=== PATIENT | female | born 1995 | race Caucasian/White ===

== ENCOUNTER 2020-09-03 10:39 | Emergency (ER) | payer OTHER ==
[~2020-09-03] VITALS: Ht 177.8 cm; Wt 89.8 kg
[2020-09-03 10:50] VITALS: Ht 177.8 cm; Wt 89.8 kg
[2020-09-03 12:57] VITALS: BP 127/42
== END 2020-09-03 12:57 | disposition home or self-care (01) ==
LOC: ED 10:39
DX: S63.615A Unspecified sprain of left ring finger, initial encounter (principal); W01.0XXA Fall on same level from slipping, tripping and stumbling without subsequent striking against object, initial encounter; Y93.89 Activity, other specified; Y92.89 Other specified places as the place of occurrence of the external cause; Y99.0 Civilian activity done for income or pay
CPT/HCPCS: A4570